=== PATIENT | female | born 1960 | race Caucasian/White ===

== ENCOUNTER 2022-04-18 13:52 | Inpatient (IN) | payer BC ==
[~2022-04-18] VITALS: Ht 182.9 cm; Wt 96.2 kg
[2022-04-18 15:17] VITALS: BP 135/63
[2022-04-18] MEDS ORDERED: ALBUTEROL/IPRATROPIUM 3 ML NEB NEB PRN (16:30)
[2022-04-18] MEDS ORDERED: BENZONATATE 100 MG CAP PO PRN (16:30)
[2022-04-18] MEDS ORDERED: HYDRALAZINE HCL 20 MG/ML VIAL IV PRN (16:30)
[2022-04-18] MEDS ORDERED: ONDANSETRON HCL INJ 2MG/ML 2ML 2 MG/ML VIAL IV PRN (16:30)
[2022-04-18] MEDS ORDERED: DIPHENHYDRAMINE HCL 25 MG CAP PO PRN (16:30)
[2022-04-18] MEDS ORDERED: DOCUSATE SODIUM 100 MG CAP PO PRN (16:30)
[2022-04-18] MEDS ORDERED: SIMETHICONE 80 MG CHEW PO PRN (16:30)
[2022-04-18] MEDS ORDERED: POTASSIUM CHLORIDE 20 MEQ TAB CR PO PRN (16:30)
[2022-04-18] MEDS ORDERED: DEXTROSE 50% SYRINGE 50 ML IV PRN ×2 (16:30)
[2022-04-18] MEDS: INSULIN LISPRO 100 UNIT/1 ML 3ML VIAL SQ SCH ×2 (16:30→21:00)
[2022-04-18] MEDS ORDERED: ACETAMINOPHEN 325 MG TAB PO PRN (16:30)
[2022-04-18] MEDS ORDERED: LIDOCAINE 4% PATCH TP PRN (16:30)
[2022-04-18] MEDS ORDERED: MELATONIN 5 MG TABLET PO PRN (16:30)
[2022-04-18] MEDS ORDERED: HYDROCODONE/APAP 5MG-325MG TAB PO PRN (16:30)
[2022-04-18 16:59] VITALS: BP 135/63
[2022-04-18 17:02] LABS: BASOPHILS # (AUTO) 0.1 (0.0-0.1); BASOPHILS % 1.3 % (0.0-1.0); EOSINOPHILS # (AUTO) 0.5 (0.0-0.4); EOSINOPHILS % 5.2 % (0.0-6.0); HEMOGLOBIN 13.7 g/dL (12.0-16.0); LYMPHOCYTES # (AUTO) 2.7 (1.0-3.2); LYMPHOCYTES % 30.7 % (18.0-39.1); MEAN CORPUSCULAR HEMOGLOBIN 28.6 pg (28-32); MEAN CORPUSCULAR HGB CONC 33.4 g/dL (31-35); MEAN CORPUSCULAR VOLUME 85.6 fL (81-99); MONOCYTES # (AUTO) 0.6 (0.2-0.8); MONOCYTES % 7.3 % (4.4-11.3); NEUTROPHILS # (AUTO) 4.9 (2.1-6.9); NEUTROPHILS % 55.2 % (38.7-80.0); PLATELET COUNT 377 x10e3/uL (140-360); RED BLOOD COUNT 4.79 x10e6/uL (3.6-5.1)
[2022-04-18 17:17] VITALS: BP 135/63
[2022-04-18 17:23] LABS: CALCIUM 9.7 mg/dL (8.4-10.2); CREATININE, SERUM 0.75 mg/dL (0.57-1.11)
[2022-04-18] MEDS ORDERED: METOPROLOL SUCC25 MG PO (17:31)
[2022-04-18] MEDS ORDERED: ROSUVASTATIN CA40 MG PO (17:31)
[2022-04-18] MEDS ORDERED: XIGDUO XR 10 M1 EAC1 PO (17:31)
[2022-04-18] MEDS ORDERED: NOVOLOG100 UNIT/1 SC (17:31)
[2022-04-18] MEDS ORDERED: OZEMPIC0.25 MG/0. SC (17:31)
[2022-04-18] MEDS ORDERED: LANTUS 3ML100 UNITS/ SQ (17:31)
[2022-04-18] MEDS ORDERED: SODIUM CHLORIDE 0.9% 250ML 0 ML ONE (17:33)
[2022-04-18] MEDS: Vancomycin IV 1 GM in SODIUM CHLORIDE 0.9% 250ML 250 ML IV SCH (18:29)
[2022-04-18] MEDS: CEFEPIME 2 GM in SODIUM CHLORIDE 0.9% 100 ML IV SCH (18:30)
[2022-04-18] MEDS: ENOXAPARIN SOD INJ 40 MG/0.4 ML SYR SC SCH (18:31)
[2022-04-18 20:29] VITALS: BP 130/70
[2022-04-19] VITALS (9 sets, daily range): BP systolic 114–147; BP diastolic 61–85
[2022-04-19] MEDS: CEFEPIME 2 GM in SODIUM CHLORIDE 0.9% 100 ML IV SCH ×2 (06:20→17:10)
[2022-04-19 06:48] LABS: BASOPHILS # (AUTO) 0.1 (0.0-0.1); BASOPHILS % 1.2 % (0.0-1.0); EOSINOPHILS # (AUTO) 0.7 (0.0-0.4); EOSINOPHILS % 8.2 % (0.0-6.0); HEMATOCRIT 41.9 % (34.2-44.1); HEMOGLOBIN 13.6 g/dL (12.0-16.0); LYMPHOCYTES # (AUTO) 3.5 (1.0-3.2); MEAN CORPUSCULAR HGB CONC 32.5 g/dL (31-35); MEAN CORPUSCULAR VOLUME 86.2 fL (81-99); MONOCYTES # (AUTO) 0.6 (0.2-0.8); NEUTROPHILS # (AUTO) 3.3 (2.1-6.9); NEUTROPHILS % 40.2 % (38.7-80.0); PLATELET COUNT 338 x10e3/uL (140-360); RED BLOOD COUNT 4.86 x10e6/uL (3.6-5.1); RED CELL DISTRIBUTION WIDTH 15.2 % (11.7-14.4)
[2022-04-19 07:27] LABS: ANION GAP 15.1 mmol/L (8-16); CALCIUM 9.2 mg/dL (8.4-10.2); CHOL/HDL RATIO 4.6 (3.0-3.6); CREATININE, SERUM 0.72 mg/dL (0.57-1.11); MAGNESIUM 1.8 MG/DL (1.3-2.1); POTASSIUM 4.1 mmol/L (3.5-5.1)
[2022-04-19 07:32] LABS: CLARITY,URINE CLEAR (CLEAR); COLOR,URINE YELLOW (YELLOW); KETONES,URINE 1+ (NEGATIVE); LEUKOCYTE ESTERASE ,URINE NEGATIVE (NEGATIVE); NITRITE,URINE NEGATIVE (NEGATIVE); PROTEIN,URINE DIPSTICK NEGATIVE (NEGATIVE); URINE UROBILINOGEN 0.2 mg/dL (0.2 - 1)
[2022-04-19 07:33] LABS: BACTERIA,URINE RARE /HPF; EPITHELIAL CELLS,URINE RARE /LPF; RBC,URINE 0-5 /HPF (0-5); WBC,URINE (MAN) 0-5 /HPF (0-5)
[2022-04-19] MEDS: INSULIN LISPRO 100 UNIT/1 ML 3ML VIAL SQ SCH ×4 (07:45→20:31)
[2022-04-19 07:49] LABS: THYROID STIMULATING HORMONE 2.709 uIU/mL (0.350-4.940)
[2022-04-19] MEDS: Vancomycin IV 1 GM in SODIUM CHLORIDE 0.9% 250ML 250 ML IV SCH ×2 (09:50→20:21)
[2022-04-19] MEDS: ENOXAPARIN SOD INJ 40 MG/0.4 ML SYR SC SCH (17:10)
== END 2022-04-19 22:35 | disposition home health service (06) | DRG 300 ==
LOC: MED/SURG3 14:27
PROVIDERS: ADMIT Internal Medicine; ATTEND Internal Medicine
PROC: 02HV33Z Insertion of Infusion Device into Superior Vena Cava, Percutaneous Approach (ICD-10-PCS; principal; 2022-04-19)
DX: E11.52 Type 2 diabetes mellitus with diabetic peripheral angiopathy with gangrene (principal); I70.261 Atherosclerosis of native arteries of extremities with gangrene, right leg; L02.611 Cutaneous abscess of right foot; M86.8X7 Other osteomyelitis, ankle and foot; E11.69 Type 2 diabetes mellitus with other specified complication; L97.514 Non-pressure chronic ulcer of other part of right foot with necrosis of bone; E11.43 Type 2 diabetes mellitus with diabetic autonomic (poly)neuropathy; E11.621 Type 2 diabetes mellitus with foot ulcer; Z79.4 Long term (current) use of insulin; Z89.411 Acquired absence of right great toe; I10 Essential (primary) hypertension; I87.2 Venous insufficiency (chronic) (peripheral); Z20.822 Contact with and (suspected) exposure to COVID-19
CPT/HCPCS: 36415; 36569; 71045; 80048; 80053; 80061; 81001; 82948; 83036; 83735; 84443; 85025; 85651; 86141; 87040; J0692; J1650; J3370; J7050

== ENCOUNTER → 2022-04-18 | Outpatient (CLI) | payer BC ==
[~2022-04-18] MED LIST: IOPAMIDOL 370 MG/ML 100 ML INFUS..BTL INJ ONE; LANTUS 3ML100 UNITS/ SQ; LIDOCAINE VISC 2% SOLN 15 ML UDC ONE; METOPROLOL SUCC25 MG PO; NOVOLOG100 UNIT/1 SC; OZEMPIC0.25 MG/0. SC; ROSUVASTATIN CA40 MG PO; XIGDUO XR 10 M1 EAC1 PO
== END ==
LOC: WCC 14:50
PROVIDERS: ATTEND Family Medicine Adult Medicine
DX: E11.621 Type 2 diabetes mellitus with foot ulcer (principal); E11.628 Type 2 diabetes mellitus with other skin complications; L03.031 Cellulitis of right toe; L97.518 Non-pressure chronic ulcer of other part of right foot with other specified severity; I87.2 Venous insufficiency (chronic) (peripheral); R60.0 Localized edema; I10 Essential (primary) hypertension; G99.0 Autonomic neuropathy in diseases classified elsewhere; M14.671 Charcot's joint, right ankle and foot; M14.672 Charcot's joint, left ankle and foot; Z89.411 Acquired absence of right great toe
CPT/HCPCS: 11042; 87071; 87075; 87186; 87205; 99203; Q9967

== ENCOUNTER → 2022-04-26 | Outpatient (CLI) | payer BC ==
[~2022-04-26] MED LIST changes: -IOPAMIDOL 370 MG/ML 100 ML INFUS..BTL INJ ONE; -LIDOCAINE VISC 2% SOLN 15 ML UDC ONE
== END ==
LOC: WCC 15:02
PROVIDERS: ATTEND Internal Medicine Infectious Disease
DX: E11.621 Type 2 diabetes mellitus with foot ulcer (principal); E11.628 Type 2 diabetes mellitus with other skin complications; M86.171 Other acute osteomyelitis, right ankle and foot; L97.518 Non-pressure chronic ulcer of other part of right foot with other specified severity; L03.031 Cellulitis of right toe; I87.2 Venous insufficiency (chronic) (peripheral); R60.0 Localized edema; I10 Essential (primary) hypertension; G99.0 Autonomic neuropathy in diseases classified elsewhere; B96.89 Other specified bacterial agents as the cause of diseases classified elsewhere; M14.671 Charcot's joint, right ankle and foot; M14.672 Charcot's joint, left ankle and foot; Z89.411 Acquired absence of right great toe

== ENCOUNTER → 2022-04-30 | Outpatient (CLI) | payer BC | LOC: WCC 13:33 | PROVIDERS: ATTEND Family Medicine Adult Medicine | DX: E11.621 Type 2 diabetes mellitus with foot ulcer (principal); E11.628 Type 2 diabetes mellitus with other skin complications; M86.171 Other acute osteomyelitis, right ankle and foot; L03.031 Cellulitis of right toe; L97.518 Non-pressure chronic ulcer of other part of right foot with other specified severity; L97.514 Non-pressure chronic ulcer of other part of right foot with necrosis of bone; I87.2 Venous insufficiency (chronic) (peripheral); R60.0 Localized edema; I10 Essential (primary) hypertension; G99.0 Autonomic neuropathy in diseases classified elsewhere; B96.89 Other specified bacterial agents as the cause of diseases classified elsewhere; Z89.411 Acquired absence of right great toe; M14.672 Charcot's joint, left ankle and foot; M14.671 Charcot's joint, right ankle and foot; Z01.810 Encounter for preprocedural cardiovascular examination ==

== ENCOUNTER → 2022-05-02 | Outpatient (CLI) | payer BC | LOC: WCC 13:25 | PROVIDERS: ATTEND Family Medicine Adult Medicine | DX: E11.621 Type 2 diabetes mellitus with foot ulcer (principal); E11.628 Type 2 diabetes mellitus with other skin complications; M86.171 Other acute osteomyelitis, right ankle and foot; L97.514 Non-pressure chronic ulcer of other part of right foot with necrosis of bone; L03.031 Cellulitis of right toe; I87.2 Venous insufficiency (chronic) (peripheral); R60.0 Localized edema; I10 Essential (primary) hypertension; G99.0 Autonomic neuropathy in diseases classified elsewhere; B96.89 Other specified bacterial agents as the cause of diseases classified elsewhere; Z89.411 Acquired absence of right great toe; M14.672 Charcot's joint, left ankle and foot; Z01.810 Encounter for preprocedural cardiovascular examination ==

== ENCOUNTER → 2022-05-03 | Outpatient (CLI) | payer BC | LOC: WCC 11:04 | PROVIDERS: ATTEND Internal Medicine Infectious Disease | DX: E11.621 Type 2 diabetes mellitus with foot ulcer (principal); E11.628 Type 2 diabetes mellitus with other skin complications; M86.171 Other acute osteomyelitis, right ankle and foot; L97.514 Non-pressure chronic ulcer of other part of right foot with necrosis of bone; L03.031 Cellulitis of right toe; I87.2 Venous insufficiency (chronic) (peripheral); R60.0 Localized edema; I10 Essential (primary) hypertension; G99.0 Autonomic neuropathy in diseases classified elsewhere; B96.89 Other specified bacterial agents as the cause of diseases classified elsewhere; M14.672 Charcot's joint, left ankle and foot; M14.671 Charcot's joint, right ankle and foot; Z01.810 Encounter for preprocedural cardiovascular examination; Z89.411 Acquired absence of right great toe ==

== ENCOUNTER → 2022-05-07 | Outpatient (CLI) | payer BC | LOC: WCC 15:45 | PROVIDERS: ATTEND Family Medicine Adult Medicine | DX: E11.621 Type 2 diabetes mellitus with foot ulcer (principal); E11.628 Type 2 diabetes mellitus with other skin complications; M86.171 Other acute osteomyelitis, right ankle and foot; L97.514 Non-pressure chronic ulcer of other part of right foot with necrosis of bone; L03.031 Cellulitis of right toe; I87.2 Venous insufficiency (chronic) (peripheral); R60.0 Localized edema; I10 Essential (primary) hypertension; G99.0 Autonomic neuropathy in diseases classified elsewhere; B96.89 Other specified bacterial agents as the cause of diseases classified elsewhere; M14.671 Charcot's joint, right ankle and foot; M14.672 Charcot's joint, left ankle and foot; Z01.810 Encounter for preprocedural cardiovascular examination; Z01.811 Encounter for preprocedural respiratory examination | CPT/HCPCS: 36415; 82948 ==

== ENCOUNTER → 2022-05-10 | Outpatient (CLI) | payer BC | LOC: WCC 10:50 | PROVIDERS: ATTEND Family Medicine Adult Medicine | DX: E11.621 Type 2 diabetes mellitus with foot ulcer (principal); E11.628 Type 2 diabetes mellitus with other skin complications; M86.171 Other acute osteomyelitis, right ankle and foot; L97.514 Non-pressure chronic ulcer of other part of right foot with necrosis of bone; L03.031 Cellulitis of right toe; I87.2 Venous insufficiency (chronic) (peripheral); R60.0 Localized edema; I10 Essential (primary) hypertension; G99.0 Autonomic neuropathy in diseases classified elsewhere; B96.89 Other specified bacterial agents as the cause of diseases classified elsewhere; Z89.411 Acquired absence of right great toe; M14.671 Charcot's joint, right ankle and foot; M14.672 Charcot's joint, left ankle and foot; Z01.810 Encounter for preprocedural cardiovascular examination ==

== ENCOUNTER → 2022-05-10 | Outpatient (CLI) | payer BC | LOC: RAD 12:13 | PROVIDERS: ATTEND Family Medicine Adult Medicine | DX: Z01.810 Encounter for preprocedural cardiovascular examination (principal) | CPT/HCPCS: 93005; 93306 ==

== ENCOUNTER → 2022-05-14 | Outpatient (CLI) | payer BC | LOC: WCC 14:06 | PROVIDERS: ATTEND Family Medicine Adult Medicine | DX: E11.621 Type 2 diabetes mellitus with foot ulcer (principal); E11.628 Type 2 diabetes mellitus with other skin complications; M86.171 Other acute osteomyelitis, right ankle and foot; L97.514 Non-pressure chronic ulcer of other part of right foot with necrosis of bone; L03.031 Cellulitis of right toe; I87.2 Venous insufficiency (chronic) (peripheral); R60.0 Localized edema; I10 Essential (primary) hypertension; G99.0 Autonomic neuropathy in diseases classified elsewhere; B96.89 Other specified bacterial agents as the cause of diseases classified elsewhere; M14.671 Charcot's joint, right ankle and foot; M14.672 Charcot's joint, left ankle and foot; Z01.810 Encounter for preprocedural cardiovascular examination; Z89.411 Acquired absence of right great toe ==

== ENCOUNTER → 2022-05-15 | Outpatient (CLI) | payer BC | LOC: WCC 10:29 | PROVIDERS: ATTEND Family Medicine Adult Medicine | DX: E11.621 Type 2 diabetes mellitus with foot ulcer (principal); E11.628 Type 2 diabetes mellitus with other skin complications; M86.171 Other acute osteomyelitis, right ankle and foot; L97.514 Non-pressure chronic ulcer of other part of right foot with necrosis of bone; L03.031 Cellulitis of right toe; I87.2 Venous insufficiency (chronic) (peripheral); R60.0 Localized edema; I10 Essential (primary) hypertension; B96.89 Other specified bacterial agents as the cause of diseases classified elsewhere; G99.0 Autonomic neuropathy in diseases classified elsewhere; M14.671 Charcot's joint, right ankle and foot; M14.672 Charcot's joint, left ankle and foot; Z01.810 Encounter for preprocedural cardiovascular examination; Z89.411 Acquired absence of right great toe ==

== ENCOUNTER → 2022-05-16 | Outpatient (CLI) | payer BC | LOC: WCC 10:22 | PROVIDERS: ATTEND Family Medicine Adult Medicine | DX: E11.621 Type 2 diabetes mellitus with foot ulcer (principal); E11.628 Type 2 diabetes mellitus with other skin complications; M86.171 Other acute osteomyelitis, right ankle and foot; L97.514 Non-pressure chronic ulcer of other part of right foot with necrosis of bone; L03.031 Cellulitis of right toe; I87.2 Venous insufficiency (chronic) (peripheral); R60.0 Localized edema; I10 Essential (primary) hypertension; G99.0 Autonomic neuropathy in diseases classified elsewhere; B96.89 Other specified bacterial agents as the cause of diseases classified elsewhere; M14.671 Charcot's joint, right ankle and foot; M14.672 Charcot's joint, left ankle and foot; X58.XXXA Exposure to other specified factors, initial encounter; Z01.810 Encounter for preprocedural cardiovascular examination; Z89.411 Acquired absence of right great toe ==

== ENCOUNTER → 2022-05-17 | Outpatient (CLI) | payer BC | LOC: WCC 10:31 | PROVIDERS: ATTEND Family Medicine Adult Medicine | DX: E11.621 Type 2 diabetes mellitus with foot ulcer (principal); E11.628 Type 2 diabetes mellitus with other skin complications; M86.171 Other acute osteomyelitis, right ankle and foot; L97.514 Non-pressure chronic ulcer of other part of right foot with necrosis of bone; L03.031 Cellulitis of right toe; I87.2 Venous insufficiency (chronic) (peripheral); R60.0 Localized edema; I10 Essential (primary) hypertension; G99.0 Autonomic neuropathy in diseases classified elsewhere; B96.89 Other specified bacterial agents as the cause of diseases classified elsewhere; M14.671 Charcot's joint, right ankle and foot; M14.672 Charcot's joint, left ankle and foot; X58.XXXA Exposure to other specified factors, initial encounter; Z01.810 Encounter for preprocedural cardiovascular examination; Z89.411 Acquired absence of right great toe | CPT/HCPCS: 99213; G0277 ==

== ENCOUNTER → 2022-05-20 | Outpatient (CLI) | payer BC | LOC: WCC 09:30 | PROVIDERS: ATTEND Family Medicine Adult Medicine | DX: E11.621 Type 2 diabetes mellitus with foot ulcer (principal); E11.628 Type 2 diabetes mellitus with other skin complications; M86.171 Other acute osteomyelitis, right ankle and foot; L03.031 Cellulitis of right toe; L97.514 Non-pressure chronic ulcer of other part of right foot with necrosis of bone; I87.2 Venous insufficiency (chronic) (peripheral); R60.0 Localized edema; S90.425A Blister (nonthermal), left lesser toe(s), initial encounter; I10 Essential (primary) hypertension; G99.0 Autonomic neuropathy in diseases classified elsewhere; B96.89 Other specified bacterial agents as the cause of diseases classified elsewhere; M14.672 Charcot's joint, left ankle and foot; X58.XXXA Exposure to other specified factors, initial encounter; Z01.810 Encounter for preprocedural cardiovascular examination; Z89.411 Acquired absence of right great toe ==

== ENCOUNTER → 2022-05-21 | Outpatient (CLI) | payer BC | LOC: WCC 15:12 | PROVIDERS: ATTEND Family Medicine Adult Medicine | DX: E11.628 Type 2 diabetes mellitus with other skin complications (principal); E11.621 Type 2 diabetes mellitus with foot ulcer; M86.171 Other acute osteomyelitis, right ankle and foot; L97.514 Non-pressure chronic ulcer of other part of right foot with necrosis of bone; L03.031 Cellulitis of right toe; I87.2 Venous insufficiency (chronic) (peripheral); R60.0 Localized edema; S90.425A Blister (nonthermal), left lesser toe(s), initial encounter; I10 Essential (primary) hypertension; G99.0 Autonomic neuropathy in diseases classified elsewhere; B96.89 Other specified bacterial agents as the cause of diseases classified elsewhere; M14.671 Charcot's joint, right ankle and foot; M14.672 Charcot's joint, left ankle and foot; X58.XXXA Exposure to other specified factors, initial encounter; Z01.810 Encounter for preprocedural cardiovascular examination; Z89.411 Acquired absence of right great toe | CPT/HCPCS: 11042; 29581; 99213; G0277 ==

== ENCOUNTER → 2022-05-22 | Outpatient (CLI) | payer BC | LOC: WCC 10:42 | PROVIDERS: ATTEND Family Medicine Adult Medicine | DX: E11.621 Type 2 diabetes mellitus with foot ulcer (principal); E11.628 Type 2 diabetes mellitus with other skin complications; M86.171 Other acute osteomyelitis, right ankle and foot; L97.514 Non-pressure chronic ulcer of other part of right foot with necrosis of bone; L03.031 Cellulitis of right toe; I87.2 Venous insufficiency (chronic) (peripheral); R60.0 Localized edema; S90.425A Blister (nonthermal), left lesser toe(s), initial encounter; I10 Essential (primary) hypertension; G99.0 Autonomic neuropathy in diseases classified elsewhere; B96.89 Other specified bacterial agents as the cause of diseases classified elsewhere; M14.671 Charcot's joint, right ankle and foot; M14.672 Charcot's joint, left ankle and foot; X58.XXXA Exposure to other specified factors, initial encounter; Z01.810 Encounter for preprocedural cardiovascular examination; Z89.411 Acquired absence of right great toe ==

== ENCOUNTER → 2022-05-24 | Outpatient (CLI) | payer BC | LOC: WCC 11:34 | PROVIDERS: ATTEND Family Medicine Adult Medicine | DX: E11.621 Type 2 diabetes mellitus with foot ulcer (principal); E11.628 Type 2 diabetes mellitus with other skin complications; M86.171 Other acute osteomyelitis, right ankle and foot; L97.514 Non-pressure chronic ulcer of other part of right foot with necrosis of bone; L03.031 Cellulitis of right toe; I87.2 Venous insufficiency (chronic) (peripheral); R60.0 Localized edema; S90.425A Blister (nonthermal), left lesser toe(s), initial encounter; I10 Essential (primary) hypertension; G99.0 Autonomic neuropathy in diseases classified elsewhere; B96.89 Other specified bacterial agents as the cause of diseases classified elsewhere; M14.671 Charcot's joint, right ankle and foot; M14.672 Charcot's joint, left ankle and foot; X58.XXXA Exposure to other specified factors, initial encounter; Z01.810 Encounter for preprocedural cardiovascular examination; Z89.411 Acquired absence of right great toe | CPT/HCPCS: 99213; G0277 ==

== ENCOUNTER → 2022-05-27 | Outpatient (CLI) | payer BC | LOC: WCC 11:29 | PROVIDERS: ATTEND Family Medicine Adult Medicine | DX: E11.621 Type 2 diabetes mellitus with foot ulcer (principal); E11.628 Type 2 diabetes mellitus with other skin complications; M86.171 Other acute osteomyelitis, right ankle and foot; L97.514 Non-pressure chronic ulcer of other part of right foot with necrosis of bone; L03.031 Cellulitis of right toe; I87.2 Venous insufficiency (chronic) (peripheral); S90.42 Blister (nonthermal) of toe; R60.0 Localized edema; I10 Essential (primary) hypertension; G99.0 Autonomic neuropathy in diseases classified elsewhere; B96.89 Other specified bacterial agents as the cause of diseases classified elsewhere; M14.671 Charcot's joint, right ankle and foot; M14.672 Charcot's joint, left ankle and foot; X58.XXXA Exposure to other specified factors, initial encounter; Z01.810 Encounter for preprocedural cardiovascular examination; Z89.411 Acquired absence of right great toe ==

== ENCOUNTER → 2022-05-28 | Outpatient (CLI) | payer BC | LOC: WCC 11:48 | PROVIDERS: ATTEND Family Medicine Adult Medicine | DX: E11.621 Type 2 diabetes mellitus with foot ulcer (principal); E11.628 Type 2 diabetes mellitus with other skin complications; M86.171 Other acute osteomyelitis, right ankle and foot; B96.89 Other specified bacterial agents as the cause of diseases classified elsewhere; L97.514 Non-pressure chronic ulcer of other part of right foot with necrosis of bone; L03.031 Cellulitis of right toe; I87.2 Venous insufficiency (chronic) (peripheral); S90.425A Blister (nonthermal), left lesser toe(s), initial encounter; R60.0 Localized edema; I10 Essential (primary) hypertension; G99.0 Autonomic neuropathy in diseases classified elsewhere; M14.671 Charcot's joint, right ankle and foot; M14.672 Charcot's joint, left ankle and foot; X58.XXXA Exposure to other specified factors, initial encounter; Z01.810 Encounter for preprocedural cardiovascular examination; Z89.411 Acquired absence of right great toe | CPT/HCPCS: 11042; 99213; G0277 ==

== ENCOUNTER → 2022-05-29 | Outpatient (CLI) | payer BC | LOC: WCC 11:00 | PROVIDERS: ATTEND Family Medicine Adult Medicine | DX: E11.621 Type 2 diabetes mellitus with foot ulcer (principal); E11.628 Type 2 diabetes mellitus with other skin complications; M86.171 Other acute osteomyelitis, right ankle and foot; L03.031 Cellulitis of right toe; L97.514 Non-pressure chronic ulcer of other part of right foot with necrosis of bone; I87.2 Venous insufficiency (chronic) (peripheral); R60.0 Localized edema; S90.425A Blister (nonthermal), left lesser toe(s), initial encounter; G99.0 Autonomic neuropathy in diseases classified elsewhere; I10 Essential (primary) hypertension; B96.89 Other specified bacterial agents as the cause of diseases classified elsewhere; M14.671 Charcot's joint, right ankle and foot; M14.672 Charcot's joint, left ankle and foot; X58.XXXA Exposure to other specified factors, initial encounter; Z01.810 Encounter for preprocedural cardiovascular examination; Z89.411 Acquired absence of right great toe ==

== ENCOUNTER → 2022-05-31 | Outpatient (CLI) | payer BC | LOC: WCC 11:57 | PROVIDERS: ATTEND Family Medicine Adult Medicine | DX: E11.621 Type 2 diabetes mellitus with foot ulcer (principal); E11.628 Type 2 diabetes mellitus with other skin complications; M86.171 Other acute osteomyelitis, right ankle and foot; L03.031 Cellulitis of right toe; L97.514 Non-pressure chronic ulcer of other part of right foot with necrosis of bone; I87.2 Venous insufficiency (chronic) (peripheral); R60.0 Localized edema; I10 Essential (primary) hypertension; G99.0 Autonomic neuropathy in diseases classified elsewhere; B96.89 Other specified bacterial agents as the cause of diseases classified elsewhere; Z89.411 Acquired absence of right great toe; Z01.810 Encounter for preprocedural cardiovascular examination; X58.XXXA Exposure to other specified factors, initial encounter; M14.672 Charcot's joint, left ankle and foot; M14.671 Charcot's joint, right ankle and foot ==

== ENCOUNTER → 2022-06-03 | Outpatient (CLI) | payer BC | LOC: WCC 10:38 | PROVIDERS: ATTEND Family Medicine Adult Medicine | DX: E11.621 Type 2 diabetes mellitus with foot ulcer (principal); E11.628 Type 2 diabetes mellitus with other skin complications; M86.171 Other acute osteomyelitis, right ankle and foot; L03.031 Cellulitis of right toe; L97.514 Non-pressure chronic ulcer of other part of right foot with necrosis of bone; I87.2 Venous insufficiency (chronic) (peripheral); R60.0 Localized edema; I10 Essential (primary) hypertension; G99.0 Autonomic neuropathy in diseases classified elsewhere; B96.89 Other specified bacterial agents as the cause of diseases classified elsewhere; M14.671 Charcot's joint, right ankle and foot; M14.672 Charcot's joint, left ankle and foot; X58.XXXA Exposure to other specified factors, initial encounter; Z01.810 Encounter for preprocedural cardiovascular examination; Z89.411 Acquired absence of right great toe ==

== ENCOUNTER → 2022-06-04 | Outpatient (CLI) | payer BC | LOC: WCC 15:04 | PROVIDERS: ATTEND Family Medicine Adult Medicine | DX: E11.621 Type 2 diabetes mellitus with foot ulcer (principal); E11.628 Type 2 diabetes mellitus with other skin complications; M86.171 Other acute osteomyelitis, right ankle and foot; L97.514 Non-pressure chronic ulcer of other part of right foot with necrosis of bone; L03.031 Cellulitis of right toe; I87.2 Venous insufficiency (chronic) (peripheral); R60.0 Localized edema; I10 Essential (primary) hypertension; B96.89 Other specified bacterial agents as the cause of diseases classified elsewhere; G99.0 Autonomic neuropathy in diseases classified elsewhere; M14.671 Charcot's joint, right ankle and foot; M14.672 Charcot's joint, left ankle and foot; X58.XXXA Exposure to other specified factors, initial encounter; Z01.810 Encounter for preprocedural cardiovascular examination; Z89.411 Acquired absence of right great toe | CPT/HCPCS: 11042; 99213; G0277 ==

== ENCOUNTER → 2022-06-05 | Outpatient (CLI) | payer BC | LOC: WCC 10:55 | PROVIDERS: ATTEND Family Medicine Adult Medicine | DX: E11.621 Type 2 diabetes mellitus with foot ulcer (principal); E11.628 Type 2 diabetes mellitus with other skin complications; M86.171 Other acute osteomyelitis, right ankle and foot; L97.514 Non-pressure chronic ulcer of other part of right foot with necrosis of bone; L03.031 Cellulitis of right toe; I87.2 Venous insufficiency (chronic) (peripheral); R60.0 Localized edema; I10 Essential (primary) hypertension; B96.89 Other specified bacterial agents as the cause of diseases classified elsewhere; G99.0 Autonomic neuropathy in diseases classified elsewhere; M14.671 Charcot's joint, right ankle and foot; M14.672 Charcot's joint, left ankle and foot; X58.XXXA Exposure to other specified factors, initial encounter; Z01.810 Encounter for preprocedural cardiovascular examination; Z89.411 Acquired absence of right great toe ==

== ENCOUNTER → 2022-06-06 | Outpatient (CLI) | payer BC ==
[~2022-06-06] MED LIST changes: +MUPIROCIN 2% OINT 22 GM TUBE ONE
== END ==
LOC: WCC 12:23
PROVIDERS: ATTEND Family Medicine Adult Medicine
DX: E11.621 Type 2 diabetes mellitus with foot ulcer (principal); E11.628 Type 2 diabetes mellitus with other skin complications; M86.171 Other acute osteomyelitis, right ankle and foot; L97.514 Non-pressure chronic ulcer of other part of right foot with necrosis of bone; I87.2 Venous insufficiency (chronic) (peripheral); R60.0 Localized edema; I10 Essential (primary) hypertension; G99.0 Autonomic neuropathy in diseases classified elsewhere; B96.89 Other specified bacterial agents as the cause of diseases classified elsewhere; M14.671 Charcot's joint, right ankle and foot; M14.672 Charcot's joint, left ankle and foot; X58.XXXA Exposure to other specified factors, initial encounter; Z01.810 Encounter for preprocedural cardiovascular examination; Z89.411 Acquired absence of right great toe
CPT/HCPCS: G0277 ×2

== ENCOUNTER → 2022-06-07 | Outpatient (CLI) | payer BC ==
[~2022-06-07] MED LIST changes: -MUPIROCIN 2% OINT 22 GM TUBE ONE
== END ==
LOC: WCC 12:39
PROVIDERS: ATTEND Family Medicine Adult Medicine
DX: E11.621 Type 2 diabetes mellitus with foot ulcer (principal); E11.628 Type 2 diabetes mellitus with other skin complications; M86.171 Other acute osteomyelitis, right ankle and foot; L97.514 Non-pressure chronic ulcer of other part of right foot with necrosis of bone; I87.2 Venous insufficiency (chronic) (peripheral); R60.0 Localized edema; I10 Essential (primary) hypertension; G99.0 Autonomic neuropathy in diseases classified elsewhere; B96.89 Other specified bacterial agents as the cause of diseases classified elsewhere; M14.671 Charcot's joint, right ankle and foot; M14.672 Charcot's joint, left ankle and foot; X58.XXXA Exposure to other specified factors, initial encounter; Z01.810 Encounter for preprocedural cardiovascular examination; Z89.411 Acquired absence of right great toe
CPT/HCPCS: 99213; G0277

== ENCOUNTER → 2022-06-12 | Outpatient (CLI) | payer BC | LOC: WCC 14:24 | PROVIDERS: ATTEND Family Medicine Adult Medicine | DX: E11.621 Type 2 diabetes mellitus with foot ulcer (principal); E11.628 Type 2 diabetes mellitus with other skin complications; M86.171 Other acute osteomyelitis, right ankle and foot; L97.514 Non-pressure chronic ulcer of other part of right foot with necrosis of bone; I87.2 Venous insufficiency (chronic) (peripheral); R60.0 Localized edema; I10 Essential (primary) hypertension; G99.0 Autonomic neuropathy in diseases classified elsewhere; B96.89 Other specified bacterial agents as the cause of diseases classified elsewhere; M14.671 Charcot's joint, right ankle and foot; M14.672 Charcot's joint, left ankle and foot; X58.XXXA Exposure to other specified factors, initial encounter; Z01.810 Encounter for preprocedural cardiovascular examination; Z89.411 Acquired absence of right great toe ==

== ENCOUNTER → 2022-06-13 | Outpatient (CLI) | payer BC | LOC: WCC 10:16 | PROVIDERS: ATTEND Family Medicine Adult Medicine | DX: E11.621 Type 2 diabetes mellitus with foot ulcer (principal); E11.628 Type 2 diabetes mellitus with other skin complications; M86.171 Other acute osteomyelitis, right ankle and foot; L97.514 Non-pressure chronic ulcer of other part of right foot with necrosis of bone; I87.2 Venous insufficiency (chronic) (peripheral); R60.0 Localized edema; I10 Essential (primary) hypertension; G99.0 Autonomic neuropathy in diseases classified elsewhere; B96.89 Other specified bacterial agents as the cause of diseases classified elsewhere; M14.671 Charcot's joint, right ankle and foot; M14.672 Charcot's joint, left ankle and foot; X58.XXXA Exposure to other specified factors, initial encounter; Z01.810 Encounter for preprocedural cardiovascular examination; Z89.411 Acquired absence of right great toe ==

== ENCOUNTER → 2022-06-14 | Outpatient (CLI) | payer BC | LOC: WCC 15:06 | PROVIDERS: ATTEND Family Medicine Adult Medicine | DX: E11.621 Type 2 diabetes mellitus with foot ulcer (principal); E11.628 Type 2 diabetes mellitus with other skin complications; M86.171 Other acute osteomyelitis, right ankle and foot; L97.514 Non-pressure chronic ulcer of other part of right foot with necrosis of bone; I87.2 Venous insufficiency (chronic) (peripheral); R60.0 Localized edema; I10 Essential (primary) hypertension; B96.89 Other specified bacterial agents as the cause of diseases classified elsewhere; M14.672 Charcot's joint, left ankle and foot; X58.XXXA Exposure to other specified factors, initial encounter; Z01.810 Encounter for preprocedural cardiovascular examination; Z89.411 Acquired absence of right great toe | CPT/HCPCS: 99212; G0277 ==

== ENCOUNTER → 2022-06-17 | Outpatient (CLI) | payer BC | LOC: WCC 13:44 | PROVIDERS: ATTEND Family Medicine Adult Medicine | DX: E11.621 Type 2 diabetes mellitus with foot ulcer (principal); E11.628 Type 2 diabetes mellitus with other skin complications; M86.171 Other acute osteomyelitis, right ankle and foot; L97.514 Non-pressure chronic ulcer of other part of right foot with necrosis of bone; I87.2 Venous insufficiency (chronic) (peripheral); R60.0 Localized edema; I10 Essential (primary) hypertension; G99.0 Autonomic neuropathy in diseases classified elsewhere; B96.89 Other specified bacterial agents as the cause of diseases classified elsewhere; M14.671 Charcot's joint, right ankle and foot; M14.672 Charcot's joint, left ankle and foot; X58.XXXA Exposure to other specified factors, initial encounter; Z01.810 Encounter for preprocedural cardiovascular examination; Z89.411 Acquired absence of right great toe ==

== ENCOUNTER → 2022-06-18 | Outpatient (CLI) | payer BC | LOC: WCC 13:55 | PROVIDERS: ATTEND Family Medicine Adult Medicine | DX: E11.621 Type 2 diabetes mellitus with foot ulcer (principal); E11.628 Type 2 diabetes mellitus with other skin complications; M86.171 Other acute osteomyelitis, right ankle and foot; L97.514 Non-pressure chronic ulcer of other part of right foot with necrosis of bone; I87.2 Venous insufficiency (chronic) (peripheral); R60.0 Localized edema; I10 Essential (primary) hypertension; G99.0 Autonomic neuropathy in diseases classified elsewhere; B96.89 Other specified bacterial agents as the cause of diseases classified elsewhere; M14.671 Charcot's joint, right ankle and foot; M14.672 Charcot's joint, left ankle and foot; X58.XXXA Exposure to other specified factors, initial encounter; Z01.810 Encounter for preprocedural cardiovascular examination; Z89.411 Acquired absence of right great toe | CPT/HCPCS: 11042; 99213; G0277 ==

== ENCOUNTER → 2022-06-21 | Outpatient (CLI) | payer BC | LOC: WCC 09:52 | PROVIDERS: ATTEND Family Medicine Adult Medicine | DX: E11.621 Type 2 diabetes mellitus with foot ulcer (principal); E11.628 Type 2 diabetes mellitus with other skin complications; M86.171 Other acute osteomyelitis, right ankle and foot; R60.0 Localized edema; I87.2 Venous insufficiency (chronic) (peripheral); L97.514 Non-pressure chronic ulcer of other part of right foot with necrosis of bone; G99.0 Autonomic neuropathy in diseases classified elsewhere; B96.89 Other specified bacterial agents as the cause of diseases classified elsewhere; I10 Essential (primary) hypertension; Z89.411 Acquired absence of right great toe; M14.672 Charcot's joint, left ankle and foot; M14.671 Charcot's joint, right ankle and foot; X58.XXXA Exposure to other specified factors, initial encounter; Z01.810 Encounter for preprocedural cardiovascular examination | CPT/HCPCS: 99213; G0277 ==

== ENCOUNTER → 2022-06-24 | Outpatient (CLI) | payer BC | LOC: WCC 14:37 | PROVIDERS: ATTEND Family Medicine Adult Medicine | DX: E11.621 Type 2 diabetes mellitus with foot ulcer (principal); E11.628 Type 2 diabetes mellitus with other skin complications; M86.171 Other acute osteomyelitis, right ankle and foot; L97.514 Non-pressure chronic ulcer of other part of right foot with necrosis of bone; I87.2 Venous insufficiency (chronic) (peripheral); R60.0 Localized edema; G99.0 Autonomic neuropathy in diseases classified elsewhere; I10 Essential (primary) hypertension; B96.89 Other specified bacterial agents as the cause of diseases classified elsewhere; M14.671 Charcot's joint, right ankle and foot; M14.672 Charcot's joint, left ankle and foot; X58.XXXA Exposure to other specified factors, initial encounter; Z01.810 Encounter for preprocedural cardiovascular examination; Z89.411 Acquired absence of right great toe ==

== ENCOUNTER → 2022-06-25 | Outpatient (CLI) | payer BC | LOC: WCC 13:30 | PROVIDERS: ATTEND Family Medicine Adult Medicine | DX: E11.621 Type 2 diabetes mellitus with foot ulcer (principal); E11.628 Type 2 diabetes mellitus with other skin complications; M86.171 Other acute osteomyelitis, right ankle and foot; L97.514 Non-pressure chronic ulcer of other part of right foot with necrosis of bone; I87.2 Venous insufficiency (chronic) (peripheral); R60.0 Localized edema; I10 Essential (primary) hypertension; G99.0 Autonomic neuropathy in diseases classified elsewhere; B96.89 Other specified bacterial agents as the cause of diseases classified elsewhere; M14.671 Charcot's joint, right ankle and foot; M14.672 Charcot's joint, left ankle and foot; X58.XXXA Exposure to other specified factors, initial encounter; Z01.810 Encounter for preprocedural cardiovascular examination; Z89.411 Acquired absence of right great toe | CPT/HCPCS: 99213; G0277 ==

== ENCOUNTER → 2022-06-26 | Outpatient (CLI) | payer BC | LOC: WCC 08:35 | PROVIDERS: ATTEND Family Medicine Adult Medicine | DX: E11.621 Type 2 diabetes mellitus with foot ulcer (principal); E11.628 Type 2 diabetes mellitus with other skin complications; M86.171 Other acute osteomyelitis, right ankle and foot; L97.514 Non-pressure chronic ulcer of other part of right foot with necrosis of bone; I87.2 Venous insufficiency (chronic) (peripheral); R60.0 Localized edema; I10 Essential (primary) hypertension; G99.0 Autonomic neuropathy in diseases classified elsewhere; B96.89 Other specified bacterial agents as the cause of diseases classified elsewhere; M14.671 Charcot's joint, right ankle and foot; M14.672 Charcot's joint, left ankle and foot; X58.XXXA Exposure to other specified factors, initial encounter; Z01.810 Encounter for preprocedural cardiovascular examination; Z89.411 Acquired absence of right great toe ==

== ENCOUNTER → 2022-06-28 | Outpatient (CLI) | payer BC | LOC: WCC 14:27 | PROVIDERS: ATTEND Family Medicine Adult Medicine | DX: E11.621 Type 2 diabetes mellitus with foot ulcer (principal); E11.628 Type 2 diabetes mellitus with other skin complications; M86.171 Other acute osteomyelitis, right ankle and foot; L97.514 Non-pressure chronic ulcer of other part of right foot with necrosis of bone; I87.2 Venous insufficiency (chronic) (peripheral); R60.0 Localized edema; I10 Essential (primary) hypertension; G99.0 Autonomic neuropathy in diseases classified elsewhere; B96.89 Other specified bacterial agents as the cause of diseases classified elsewhere; M14.671 Charcot's joint, right ankle and foot; M14.672 Charcot's joint, left ankle and foot; X58.XXXA Exposure to other specified factors, initial encounter; Z01.810 Encounter for preprocedural cardiovascular examination; Z89.411 Acquired absence of right great toe ==

== ENCOUNTER → 2022-07-01 | Outpatient (CLI) | payer BC | LOC: WCC 14:02 | PROVIDERS: ATTEND Family Medicine Adult Medicine | DX: E11.628 Type 2 diabetes mellitus with other skin complications (principal); M86.171 Other acute osteomyelitis, right ankle and foot; I87.2 Venous insufficiency (chronic) (peripheral); R60.0 Localized edema; I10 Essential (primary) hypertension; G99.0 Autonomic neuropathy in diseases classified elsewhere; B96.89 Other specified bacterial agents as the cause of diseases classified elsewhere; M14.671 Charcot's joint, right ankle and foot; M14.672 Charcot's joint, left ankle and foot; X58.XXXA Exposure to other specified factors, initial encounter; Z01.810 Encounter for preprocedural cardiovascular examination; Z89.411 Acquired absence of right great toe ==

== ENCOUNTER → 2022-07-04 | Outpatient (CLI) | payer BC | LOC: WCC 09:19 | PROVIDERS: ATTEND Family Medicine Adult Medicine | DX: E11.628 Type 2 diabetes mellitus with other skin complications (principal); M86.171 Other acute osteomyelitis, right ankle and foot; R60.0 Localized edema; I87.2 Venous insufficiency (chronic) (peripheral); I10 Essential (primary) hypertension; G99.0 Autonomic neuropathy in diseases classified elsewhere; B96.89 Other specified bacterial agents as the cause of diseases classified elsewhere; M14.671 Charcot's joint, right ankle and foot; M14.672 Charcot's joint, left ankle and foot; X58.XXXA Exposure to other specified factors, initial encounter; Z01.810 Encounter for preprocedural cardiovascular examination; Z89.411 Acquired absence of right great toe ==

== ENCOUNTER → 2022-07-05 | Outpatient (CLI) | payer BC | LOC: WCC 15:02 | PROVIDERS: ATTEND Family Medicine Adult Medicine | DX: E11.628 Type 2 diabetes mellitus with other skin complications (principal); M86.171 Other acute osteomyelitis, right ankle and foot; R60.0 Localized edema; I87.2 Venous insufficiency (chronic) (peripheral); G99.0 Autonomic neuropathy in diseases classified elsewhere; I10 Essential (primary) hypertension; B96.89 Other specified bacterial agents as the cause of diseases classified elsewhere; M14.671 Charcot's joint, right ankle and foot; M14.672 Charcot's joint, left ankle and foot; X58.XXXA Exposure to other specified factors, initial encounter; Z01.810 Encounter for preprocedural cardiovascular examination; Z89.411 Acquired absence of right great toe ==

== ENCOUNTER → 2022-07-16 | Outpatient (CLI) | payer BC | LOC: WCC 13:29 | PROVIDERS: ATTEND Family Medicine Adult Medicine | DX: E11.628 Type 2 diabetes mellitus with other skin complications (principal); M86.171 Other acute osteomyelitis, right ankle and foot; I87.2 Venous insufficiency (chronic) (peripheral); R60.0 Localized edema; I10 Essential (primary) hypertension; G99.0 Autonomic neuropathy in diseases classified elsewhere; B96.89 Other specified bacterial agents as the cause of diseases classified elsewhere; M14.671 Charcot's joint, right ankle and foot; M14.672 Charcot's joint, left ankle and foot; X58.XXXA Exposure to other specified factors, initial encounter; Z01.810 Encounter for preprocedural cardiovascular examination; Z89.411 Acquired absence of right great toe ==